=== PATIENT | male | born 1955 | race Caucasian/White ===

== ENCOUNTER 2019-07-20 20:35 | Emergency (ER) | payer OTHER ==
[~2019-07-20] VITALS: Ht 177.8 cm; Wt 62.6 kg
[~2019-07-20 20:35] MED LIST: ACIPHEX; AUGMENTIN 875-1 EACH PO; NORCO 5-325 TA1 EACH PO
[2019-07-20 22:29] LABS: ABSOLUTE NEUTROPHILS 3.6 thou/uL (1.4-8.2); BASOPHILS 1.1 % (0.0-2.0); EOSINOPHILS 0.4 % (0.0-3.0); HEMATOCRIT 39.3 % (42.0-52.0); HEMOGLOBIN 13.5 gm/dL (14.0-18.0); LYMPHOCYTES 23.7 % (24.0-44.0); MCH 36.3 pg (26.0-34.0); MCHC 34.4 g/dL (28.0-37.0); MCV 105.8 fL (80.0-100.0); MONOCYTES 11.2 % (1.0-8.0); PLATELET COUNT 130 thou/uL (150-400); POLYS 63.6 % (36.0-66.0); RBC 3.71 mil/uL (4.50-6.00); RDW 16.5 % (10.5-14.5); WBC 5.7 thou/uL (4.0-11.0)
[2019-07-20 22:44] LABS: ALBUMIN 3.8 g/dL (3.4-5.0); APTT 27.7 Seconds (24.5-32.8); CREATININE 0.7 mg/dL (0.7-1.3); DIRECT BILIRUBIN 0.1 mg/dL (<0.1-0.2); INR 1.2; POTASSIUM 4.6 mmol/L (3.5-5.1); PROTIME 12.2 Seconds (9.3-11.4); TOTAL BILIRUBIN 0.8 mg/dL (0.2-1.0); TOTAL PROTEIN 6.6 g/dL (6.4-8.2)
[2019-07-21] MEDS ORDERED: NEURONTIN 300M300 M2 PO (00:09)
[2019-07-21] MEDS ORDERED: NORCO 5-325 TA1 EAC1 PO (00:09)
[2019-07-21 00:32] VITALS: BP 157/111
== END 2019-07-21 00:30 | disposition home or self-care (01) ==
LOC: ER 20:35
PROVIDERS: Emergency Medicine
DX: F10.20 Alcohol dependence, uncomplicated (principal); G62.9 Polyneuropathy, unspecified; L25.9 Unspecified contact dermatitis, unspecified cause; E78.00 Pure hypercholesterolemia, unspecified; K22.70 Barrett's esophagus without dysplasia; Y90.9 Presence of alcohol in blood, level not specified